=== PATIENT | male | born 1990 | race Caucasian/White ===

== ENCOUNTER → 2018-05-28 | Outpatient (CLI) | payer OTHER | LOC: CIMAGING 08:06 | PROVIDERS: ATTEND Orthopaedic Surgery Hand Surgery | DX: S62.035K Nondisplaced fracture of proximal third of navicular [scaphoid] bone of left wrist, subsequent encounter for fracture with nonunion (principal); R93.89 Abnormal findings on diagnostic imaging of other specified body structures; M25.532 Pain in left wrist | CPT/HCPCS: 73200-PO ==

== ENCOUNTER → 2018-08-26 | Outpatient (CLI) | payer OTHER | LOC: CIMAGING 08:13 | DX: M25.532 Pain in left wrist (principal); S62.035D Nondisplaced fracture of proximal third of navicular [scaphoid] bone of left wrist, subsequent encounter for fracture with routine healing; M87.042 Idiopathic aseptic necrosis of left hand; Z98.1 Arthrodesis status | CPT/HCPCS: 73200-PO ==